=== PATIENT | male | born 1930 | race Caucasian/White ===

== ENCOUNTER 2016-07-20 11:09 | Inpatient (IN) | payer MEDICAID ==
[~2016-07-20] VITALS: Ht 167.6 cm; Wt 96.2 kg
[2016-07-20] VITALS (9 sets, daily range): BP systolic 135–170; BP diastolic 61–100
--- NOTE | 2016-07-20 11:11 | NUR ---
Pt brought to bed 2a via ra [id number] , pt on aureliano and dr parikh at bedside for exam.
--- NOTE | 2016-07-20 11:15 | NUR ---
Pt on phone, not cooperating w/ vitals at this time.
--- NOTE | 2016-07-20 11:35 | NUR ---
[employer] at bedside for report.
[2016-07-20] MEDS ORDERED: TDAP DIPH,PERTUSS,TET VAC/PF 0.5 ML DISP.SYRIN IM ONE ×2 (12:00→12:19)
[2016-07-20 12:08] LABS: BASOPHILS # (AUTO) 0.1 K/uL (0.0-8.0); BASOPHILS % (AUTO) 0.8 % (0.0-2.0); EOSINOPHILS # (AUTO) 0.6 K/uL (0.0-0.7); HEMATOCRIT 39.2 % (36.7-47.1); HEMOGLOBIN 13.3 g/dL (12.5-16.3); LYMPHOCYTES % (AUTO) 12.7 % (20.5-51.5); MEAN CORPUSCULAR HEMOGLOBIN 30.5 uug (23.8-33.4); MEAN CORPUSCULAR HGB CONC 34 g/dL (32.5-36.3); MEAN CORPUSCULAR VOLUME 90.2 fL (73.0-96.2); MONOCYTES # (AUTO) 0.5 K/uL (2.0-10.0); MONOCYTES % (AUTO) 6.7 % (0.0-11.0); NEUTROPHILS # (AUTO) 5.5 K/uL (1.8-8.9); NEUTROPHILS % (AUTO) 71.8 % (38.5-71.5); PLATELET COUNT (AUTO) 216 K/uL (152-348); RED BLOOD CELL COUNT(AUTO) 4.34 MIL/uL (4.06-5.63); RED CELL DISTRIBUTION WIDTH 13.2 % (12.1-16.2); WHITE BLOOD COUNT (AUTO) 7.7 K/uL (3.6-10.2)
[2016-07-20 12:17] LABS: CALCIUM 8.5 mg/dL (8.5-10.1); CARBON DIOXIDE 24 mmol/L (21-32); CHLORIDE 107 mmol/L (98-107); CREATININE 2.4 mg/dL (0.6-1.3); GLUCOSE 154 mg/dL (74-106); POTASSIUM 4.3 mmol/L (3.5-5.1); SODIUM SERUM 140 mmol/L (136-145); UREA NITROGEN, BLOOD 54 mg/dL (7-18)
--- NOTE | 2016-07-20 12:19 | NUR ---
Pt transferred to ct via [facility].
[2016-07-20 12:21] LABS: AMMONIA 12 umol/L (11-32)
[2016-07-20 12:24] LABS: ETHANOL < 3 MG/DL (0-0)
[2016-07-20 12:25] LABS: TROPONIN I < 0.017 ng/mL (0.00-0.056)
[2016-07-20 12:27] LABS: ACETAMINOPHEN < 2.0 ug/mL (10-30); ALANINE AMINOTRANSFERASE 21 U/L (16-63); ALBUMIN 3.5 g/dL (3.4-5.0); ALKALINE PHOSPHATASE 65 U/L (50-136); ASPARTATE AMINOTRANSFERASE 15 U/L (15-37); BILIRUBIN,DIRECT 0.1 mg/dL (0.0-0.2); BILIRUBIN,TOTAL 0.5 mg/dL (0.1-1.0); TOTAL PROTEIN, SERUM 6.9 g/dL (6.4-8.2)
[2016-07-20 12:30] LABS: LACTIC ACID 1.4 mmol/L (0.4-2.0)
[2016-07-20 12:37] LABS: THYROID STIMULATING HORMONE 4.489 mIU/mL (0.358-3.740)
[2016-07-20] MEDS ORDERED: LEVO750T46 PO (12:51)
[2016-07-20] MEDS ORDERED: CARV12.52 PO (12:51)
[2016-07-20] MEDS ORDERED: TAMS0.4C34 PO (12:51)
[2016-07-20] MEDS ORDERED: LISI10TA5 PO (12:51)
[2016-07-20] MEDS ORDERED: FURO40TA5 PO (12:51)
[2016-07-20] MEDS ORDERED: APIX2.5T PO (12:51)
[2016-07-20] MEDS ORDERED: ALLO300T2 PO (12:51)
[2016-07-20] MEDS ORDERED: PANT40TA4 PO (12:51)
[2016-07-20] MEDS ORDERED: SIMV20TA6 PO (12:51)
[2016-07-20] MEDS ORDERED: LEVO25TA9 PO (12:51)
--- NOTE | 2016-07-20 13:12 | NUR ---
i spoke w/ [facility] and faxed report , waiting for call back.
[2016-07-20 13:47] LABS: *AMPHETAMINE, URINE NEGATIVE (NEGATIVE); *BARBITURATE, URINE NEGATIVE (NEGATIVE); *BILIRUBIN,URIN NEGATIVE (NEGATIVE); *BLOOD, URINE Trace-lysed (NEGATIVE); *CANNABINOID, URINE NEGATIVE (NEGATIVE); *CLARITY,URINE CLEAR (CLEAR); *COCCAINE, URINE NEGATIVE (NEGATIVE); *COLOR,URINE YELLOW (YELLOW); *KETONES,URINE NEGATIVE (NEGATIVE); *OPIATE, URINE NEGATIVE (NEGATIVE); *PHENCYCLIDINE SCREEN,URINE NEGATIVE (NEGATIVE); *PROTEIN,URINE 1+ (NEGATIVE); *UROBILINOGEN,URINE 0.2 E.U./dl (NORMAL); LEUKOCYTE ESTERASE ,URINE NEGATIVE (NEGATIVE); NITRITE, URINE NEGATIVE (NEGATIVE); UGLUCOSE NEGATIVE (NEGATIVE)
--- NOTE | 2016-07-20 13:47 | NUR ---
dr guzman at [facility] refused to take pt, told to admit andd watch pt for 24 hrs, dr parikh informed.
--- NOTE | 2016-07-20 13:48 | NUR ---
i asked if dr parikh wanted to call a code stroke he stated "no".
--- NOTE | 2016-07-20 13:48 | NUR ---
Pt placed on 2 ltrs on via nc, 2nd iv started to rt ac, 20 ga.
[2016-07-20 14:01] LABS: BACTERIA,URINE FEW /HPF (NONE SEEN); SQUAMOUS EPITHELIAL CELL,UR FEW /HPF (NONE SEEN); WBC,URINE 0-3 /HPF (0-3)
--- NOTE | 2016-07-20 14:09 | NUR ---
Dr parikh spoke w/ admitting dr. aguilar to go [facility].
--- NOTE | 2016-07-20 14:23 | NUR ---
Pt ready for transfer to [facility].
--- NOTE | 2016-07-20 14:28 | NUR ---
Rt knee cleaned w/ betadine and saline, steri-strips applied and sterile dressing in place.
[2016-07-20] MEDS ORDERED: ONDANSETRON 4 MG/2 ML VIAL IV PRN (14:30)
[2016-07-20] MEDS ORDERED: Z GUARD REMEDY PASTE 57 GM TUBE TOP PRN (14:30)
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
[2016-07-20] MEDS ORDERED: LEVALBUTEROL HCL NEB 0.63 MG/3 ML NEBU NEB PRN (15:45)
[2016-07-20] MEDS ORDERED: AMIODARONE HCL IV 150 MG in IV DEXTROSE 5% 100 ML IV ONE (15:45)
[2016-07-20] MEDS ORDERED: AMIODARONE HCL IV 900 MG in IV DEXTROSE 5% 482 ML IV PRN (15:45)
[2016-07-20] MEDS: MORPHINE SULFATE 2 MG/1 ML DISP.SYRIN IV PRN ×2 (15:49→20:18)
[2016-07-20] MEDS: IV 1/2NS 1000 ML 1,000 ML IV PRN (16:28)
--- NOTE | 2016-07-20 16:30 | NUR ---
NOTIFIED DROLEG REGARDING THE FAST ATRIAL RATESIN THE 150-180B/MIN ATRIAL FLUTTER. 2DECHO DONE AT BEDSIDE. HR IS LESS THAN 100 PER ECHO WITH SLOWVENTRICULAR RATES. DR HARMON CAMEIN AND CANCELLED THE ORDER FOR AMIODARONE DRIP. STARTEDMAIN IVF 1/2 NS AT 75ML/HR. PT IS MEDICATED WITH [id number] SLOWIVP FOR C/O PAIN LEVEL 10. ABLE TO SLEEP ON AND OFF.
--- NOTE | 2016-07-20 19:30 | NUR ---
Report received. Patient ISRA, speaks Chilean and very little Bulgarian. Denies SOB. Monitor: A-flutter with variable blocks. Rate registering 150's-170's. Patient's apical heart tones=72. Assessment completed. Addendum: 07/21/16 at 0258 by FILOMENA RAMIREZ RN Amended: Links added.
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
[2016-07-20] MEDS: METOPROLOL TARTRATE 25 MG TABLET PO SCH (22:55)
[2016-07-20] MEDS ORDERED: METOPROLOL TARTRATE 25 MG TABLET ONE (23:03)
[2016-07-21] VITALS (20 sets, daily range): BP systolic 113–156; BP diastolic 59–79
[2016-07-21] MEDS: MORPHINE SULFATE 2 MG/1 ML DISP.SYRIN IV PRN ×3 (00:17→13:16)
--- NOTE | 2016-07-21 01:00 | NUR ---
Sleeping after Morphine IV for pain. No neuro changes. Addendum: 07/21/16 at 0304 by FILOMENA RAMIREZ RN Amended: Links added.
[2016-07-21] MEDS: ACETAMINOPHEN 325 MG TABLET PO PRN ×2 (03:29→16:13)
--- NOTE | 2016-07-21 04:00 | NUR ---
In 4:1 Atrial flutter, monitor showing HR of 140's-200's with pacer spikes but patient's apical pulse is in the 70's by auscultation. Monitoring leads changed many times but futile. Bedside and central monitor don't correlate with apical pulse. HR documentation in VS flow sheet is as per apical pulse by auscultation not as per monitor. Addendum: 07/21/16 at 0621 by FILOMENA RAMIREZ RN Amended: Links added. Addendum: 07/21/16 at 0622 by FILOMENA RAMIREZ RN Amended: Links added.
[2016-07-21 05:20] LABS: BASOPHILS % (AUTO) 0.5 % (0.0-2.0); EOSINOPHILS # (AUTO) 0.9 K/uL (0.0-0.7); EOSINOPHILS % (AUTO) 9.9 % (0.0-7.0); HEMATOCRIT 34.1 % (36.7-47.1); HEMOGLOBIN 11.6 g/dL (12.5-16.3); LYMPHOCYTES % (AUTO) 11.3 % (20.5-51.5); MEAN CORPUSCULAR HEMOGLOBIN 30.6 uug (23.8-33.4); MEAN CORPUSCULAR HGB CONC 34 g/dL (32.5-36.3); MONOCYTES # (AUTO) 0.6 K/uL (2.0-10.0); MONOCYTES % (AUTO) 6.3 % (0.0-11.0); NEUTROPHILS # (AUTO) 6.6 K/uL (1.8-8.9); PLATELET COUNT (AUTO) 183 K/uL (152-348); RED BLOOD CELL COUNT(AUTO) 3.79 MIL/uL (4.06-5.63); RED CELL DISTRIBUTION WIDTH 12.8 % (12.1-16.2); WHITE BLOOD COUNT (AUTO) 9.1 K/uL (3.6-10.2)
[2016-07-21 05:27] LABS: ALBUMIN 2.7 g/dL (3.4-5.0); BILIRUBIN,TOTAL 1.2 mg/dL (0.2-1.0); CALCIUM 8.3 mg/dL (8.5-10.1); MAGNESIUM 1.9 mg/dL (1.8-2.4); PHOSPHOROUS 3.4 mg/dL (2.5-4.9); POTASSIUM 4.4 mmol/L (3.5-5.1); TOTAL PROTEIN, SERUM 6.3 g/dL (6.4-8.2)
[2016-07-21 05:33] LABS: THYROID STIMULATING HORMONE 3.168 mIU/mL (0.358-3.740)
[2016-07-21 05:36] LABS: CREATININE 1.9 mg/dL (0.6-1.3)
[2016-07-21] MEDS: IV 1/2NS 1000 ML 1,000 ML IV PRN ×2 (05:54→21:00)
--- NOTE | 2016-07-21 06:00 | NUR ---
Patient stable all night. No neuro changes. NAD. Addendum: 07/21/16 at 2055 by FILOMENA RAMIREZ RN Amended: Links added.
[2016-07-21] MEDS: METOPROLOL TARTRATE 25 MG TABLET PO SCH ×2 (08:14→20:58)
[2016-07-21] MEDS ORDERED: PANTOPRAZOLE SODIUM 40 MG TABLET.DR PO SCH (09:00)
--- NOTE | 2016-07-21 11:30 | NUR ---
PT IN UNNIT FOR EVALUATION. PATIENT USED WALKER TO GO TO THE BATHROOM.
[2016-07-21] MEDS ORDERED: diphenhydrAMINE 50 MG/1 ML VIAL IV PRN (16:00)
--- NOTE | 2016-07-21 16:00 | NUR ---
DOCTOR EDEN IN UNIT. MAY TRANSFER/ DOWNGRADE PATIENT AFTER CT SCAN OF THE HEAD IF NO BLEED WORSENING THAN OKAY TO TRANSFER MEDICAL FLOOR.
--- NOTE | 2016-07-21 19:00 | NUR ---
Report received from FLORES Dumont
--- NOTE | 2016-07-21 19:55 | NUR ---
Report to Bonnie and Rachel PurcellRN
--- NOTE | 2016-07-21 20:15 | NUR ---
RECEIVED PATIENT FROM ICU, AUSTRALIAN SPEAKING, ALERT, VERBALLY RESPONSIVE, IN NO ACUTE DISTRESS. PT ON TELE ATRIAL FLUTTER. MONITOR SHOWING HR OF 170'S BUT PT'S APICAL PULSE UPON AUSCULTATION IS IN THE 70'S. PATIENT DENIES DIZZINESS, CHEST PAIN OR SOB. PATIENT AMBULATES FROM BED TO CHAIR WITH NOTED UNSTEADY GAIT. INSTRUCTED PATIENT REGARDING SAFETY MEASURES, FALL RISK AND TO USE CALL LIGHT FOR ASSISTANCE. PATIENT VERBALIZED UNDERSTANDING. FRIENDS FROM [place] AT BEDSIDE. BED ALARM ON, BED IN LOW POSITION, CALL LIGHT WITHIN REACH. WILL CONTINUE TO MONITOR.
[2016-07-21] MEDS: MUPIROCIN 2% OINT 22 GM TUBE NS SCH (21:00)
[2016-07-22] VITALS: BP 135/70
[2016-07-22] MEDS: ACETAMINOPHEN 325 MG TABLET PO PRN (03:24)
[2016-07-22 04:00] VITALS: BP 130/59
[2016-07-22] MEDS: PANTOPRAZOLE SODIUM 40 MG TABLET.DR PO SCH (06:21)
--- NOTE | 2016-07-22 06:50 | NUR ---
PT SLEPT INTERMITTENTLY, IN NO ACUTE DISTRESS. KEPT GETTING OUT OF BED TO VOID VIA URINAL. FREQUENT REMINDERS REGARDING FALL/SAFETY MEASURES, PT VERBALIZED UNDERSTANDING. CALL LIGHT WITHIN REACH, BED ALARM ON. WILL CONTINUE TO MONITOR.
[2016-07-22 06:59] LABS: BASOPHILS % (AUTO) 0.4 % (0.0-2.0); EOSINOPHILS % (AUTO) 9.9 % (0.0-7.0); HEMATOCRIT 34.3 % (36.7-47.1); HEMOGLOBIN 12.1 g/dL (12.5-16.3); LYMPHOCYTES # (AUTO) 0.8 K/uL (20.0-40.0); LYMPHOCYTES % (AUTO) 7.6 % (20.5-51.5); MEAN CORPUSCULAR HEMOGLOBIN 31.9 uug (23.8-33.4); MEAN CORPUSCULAR HGB CONC 35 g/dL (32.5-36.3); MEAN CORPUSCULAR VOLUME 90.1 fL (73.0-96.2); MONOCYTES # (AUTO) 0.3 K/uL (2.0-10.0); NEUTROPHILS # (AUTO) 8.1 K/uL (1.8-8.9); NEUTROPHILS % (AUTO) 79.1 % (38.5-71.5); PLATELET COUNT (AUTO) 158 K/uL (152-348); WHITE BLOOD COUNT (AUTO) 10.3 K/uL (3.6-10.2)
[2016-07-22 07:12] LABS: ALBUMIN 3.1 g/dL (3.4-5.0); BILIRUBIN,TOTAL 0.9 mg/dL (0.2-1.0); CALCIUM 8.5 mg/dL (8.5-10.1); MAGNESIUM 1.9 mg/dL (1.8-2.4); PHOSPHOROUS 2.9 mg/dL (2.5-4.9); POTASSIUM 4.4 mmol/L (3.5-5.1); TOTAL PROTEIN, SERUM 6.3 g/dL (6.4-8.2)
[2016-07-22 07:14] LABS: CREATININE 2.1 mg/dL (0.6-1.3)
[2016-07-22 07:23] VITALS: BP 156/77
[2016-07-22 07:56] LABS: EOSINOPHILS % (MANUAL) 8 % (0-8); LYMPHOCYTES % (MANUAL) 11 % (20-40); MONOCYTES % (MANUAL) 4 % (2-10); NEUTROPHILS % (MANUAL) 77 % (42-75); PLATELET ESTIMATE ADEQUATE
[2016-07-22] MEDS: METOPROLOL TARTRATE 25 MG TABLET PO SCH (08:00)
[2016-07-22] MEDS: MUPIROCIN 2% OINT 22 GM TUBE NS SCH ×2 (08:00→20:03)
[2016-07-22] MEDS ORDERED: ALBUTEROL SULFATE 1.25 MG/3 ML NEBU NEB PRN (09:00)
[2016-07-22 11:21] VITALS: BP 137/74
[2016-07-22 15:15] VITALS: BP 133/76
[2016-07-22] MEDS: CARVEDILOL 12.5 MG TABLET PO SCH (17:11)
[2016-07-22 20:00] VITALS: BP 134/78
[2016-07-22] MEDS ORDERED: TAMSULOSIN HCL 0.4 MG CAP.SR.24H PO SCH (21:00)
[2016-07-22] MEDS ORDERED: SIMVASTATIN 10 MG TABLET PO SCH (21:00)
[2016-07-22] MEDS ORDERED: SIMVASTATIN 20 MG TABLET PO SCH (21:00)
[2016-07-23 04:57] VITALS: BP 145/71
[2016-07-23] MEDS: PANTOPRAZOLE SODIUM 40 MG TABLET.DR PO SCH (06:21)
--- NOTE | 2016-07-23 06:29 | NUR ---
PATIENT SLEPT INTERMITTENTLY, IN NO ACUTE DISTRESS. EAGER TO BE DISCHARGED. PT IS AMBULATORY, VOIDS VIA URINAL. INSTRUCTED PT TO USE CALL LIGHT FOR ASSISTANCE, PT VERBALIZED UNDERSTANDING. BED ALARM ON FOR SAFETY. WILL CONTINUE TO MONITOR.
[2016-07-23] MEDS ORDERED: LEVOTHYROXINE SODIUM 25 MCG TABLET PO SCH (07:00)
--- NOTE | 2016-07-23 07:30 | NUR ---
pt received in bed sleeping.v/s are stable.breakfast served.
[2016-07-23] MEDS: CARVEDILOL 12.5 MG TABLET PO SCH (07:34)
[2016-07-23] MEDS: MUPIROCIN 2% OINT 22 GM TUBE NS SCH (08:01)
[2016-07-23] MEDS ORDERED: ALLOPURINOL 300 MG TABLET PO SCH (09:00)
[2016-07-23 11:06] VITALS: BP 124/70
[2016-07-23 12:33] LABS: PTH, INTACT 46 pg/mL (15-65)
[2016-07-23] MEDS ORDERED: SIMV10TA6 PO (13:12)
[2016-07-23] MEDS ORDERED: MUPI22OI2 NS (13:12)
[2016-07-23] MEDS ORDERED: APIX2.5T PO (13:12)
--- NOTE | 2016-07-23 13:20 | NUR ---
pt seen by dr thrasher.
[2016-07-23 15:03] VITALS: BP 119/70
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
[2016-07-26 07:06] LABS: A/G RATIO 1.1 (0.7-1.7); ALBUMIN 3.1 g/dL (2.9-4.4); ALPHA-1-GLOBULIN 0.3 g/dL (0.0-0.4); ALPHA-2-GLOBULIN 0.7 g/dL (0.4-1.0); BETA GLOBULIN 0.8 g/dL (0.7-1.3); GAMMA GLOBULIN 0.9 g/dL (0.4-1.8); GLOBULIN, TOTAL 2.7 g/dL (2.2-3.9); M-SPIKE Not Observed g/dL (Not Observed)
== END 2016-07-23 15:45 | disposition home or self-care (01) | DRG 55 ==
LOC: ER 11:09 → CCU 14:41 → TELE 07-21 20:15 → MED 07-23 11:17
PROVIDERS: ADMIT Internal Medicine; ATTEND Internal Medicine
DX: S06.5X0A Traumatic subdural hemorrhage without loss of consciousness, initial encounter (principal); N17.0 Acute kidney failure with tubular necrosis; I50.33 Acute on chronic diastolic (congestive) heart failure; S22.31XA Fracture of one rib, right side, initial encounter for closed fracture; T14.8 Other injury of unspecified body region; N40.0 Benign prostatic hyperplasia without lower urinary tract symptoms; S80.211A Abrasion, right knee, initial encounter; V43.52XA Car driver injured in collision with other type car in traffic accident, initial encounter; Y92.410 Unspecified street and highway as the place of occurrence of the external cause; I13.0 Hypertensive heart and chronic kidney disease with heart failure and stage 1 through stage 4 chronic kidney disease, or unspecified chronic kidney disease; N18.9 Chronic kidney disease, unspecified; E66.9 Obesity, unspecified; Z68.33 Body mass index [BMI] 33.0-33.9, adult; E03.9 Hypothyroidism, unspecified; E78.5 Hyperlipidemia, unspecified; I48.91 Unspecified atrial fibrillation; M10.9 Gout, unspecified; Z90.49 Acquired absence of other specified parts of digestive tract; Z95.0 Presence of cardiac pacemaker; Z86.73 Personal history of transient ischemic attack (TIA), and cerebral infarction without residual deficits; M47.812 Spondylosis without myelopathy or radiculopathy, cervical region; M48.06 Spinal stenosis, lumbar region; K21.9 Gastro-esophageal reflux disease without esophagitis; M19.90 Unspecified osteoarthritis, unspecified site; R94.31 Abnormal electrocardiogram [ECG] [EKG]
CPT/HCPCS: 36415; 70030-TC; 70450; 71010; 72125; 72131; 73060; 73090; 73130; 73560; 76770; 80307; 83605; 83735; 83970; 84100; 84155; 84165; 84443; 85025; 85730; 87040; 87086; 90715; 93005; 93307; 97001; 97116; 97530; A4663; G0480-TC; G6040-TC; J0282; J1200; J2270; J3490; J7060